=== PATIENT | male | born 1970 | race African-American/Black ===

== ENCOUNTER 2024-12-27 09:05 | Emergency (ER) | payer SELFPAY ==
[~2024-12-27] VITALS: Ht 182.9 cm; Wt 78.0 kg
[2024-12-27 09:17] VITALS: O2SAT 96
[2024-12-27] MEDS ORDERED: HYDR453.3 TP (10:02)
[2024-12-27] MEDS ORDERED: COLL140L TP (10:02)
[2024-12-27 10:40] VITALS: TEMP 37
[2024-12-27 10:41] VITALS: BP 138/94; PULSE 84; RESP 17; O2SAT 99
== END 2024-12-27 10:41 | disposition home or self-care (01) ==
LOC: ER 09:05
DX: L30.9 Dermatitis, unspecified (principal)
CPT/HCPCS: 99282